=== PATIENT | female | born 1975 | race African-American/Black ===

== ENCOUNTER 2018-02-16 17:35 | Inpatient (IN) | payer SELFPAY ==
[~2018-02-16] VITALS: Ht 160 cm; Wt 124.7 kg
[2018-02-16] MEDS ORDERED: PROT20 PO (17:44)
[2018-02-16] MEDS ORDERED: SODIUM CHLORIDE 0.9% 1,000 ML IV ONE (20:20)
[2018-02-16] MEDS ORDERED: ONDANSETRON HCL 4MG/2ML VIAL IV STA (20:20)
[2018-02-16] MEDS ORDERED: PANTOPRAZOLE SODIUM 40 MG/VIAL IV STA (20:20)
[2018-02-16] MEDS ORDERED: MORPHINE SULFATE 4 MG/ML CPJ (NOT FOR IM USE) IV STA (20:20)
[2018-02-16 21:07] LABS: BASOPHILS % 0.5 % (0.0-2.0); EOSINOPHILS % 0.6 % (0.0-5.0); HEMATOCRIT. 33.4 % (36.0-48.0); HEMOGLOBIN. 11.2 g/dL (12.0-16.0); MEAN CORPUSCULAR VOLUME 77.5 fL (81.0-99.0); MEAN PLATELET VOLUME 7.9 fl (7.4-10.4); MONOCYTES % 6.1 % (2.0-8.0); NEUTROPHILS % 65.8 % (40.0-76.0); PLATELET 396 x1000/uL (130-400); RED BLOOD CELL COUNT 4.31 mill/uL (4.2-5.4); RED CELL DISTRIBUTION WIDTH 20.7 % (11.6-14.6)
[2018-02-16 21:08] LABS: CHLORIDE 104 mEq/L (98-107)
[2018-02-16 21:10] LABS: PROTHROMBIN TIME 10.8 sec (9.4-11.6)
[2018-02-16 21:17] LABS: HCG SCREEN NEGATIVE
[2018-02-16] MEDS ORDERED: ONDANSETRON 4MG ODT PO ONE (22:15)
[2018-02-16] MEDS ORDERED: MORPHINE SULFATE 10 MG/ML CPJ IM ONE (22:15)
[2018-02-17] MEDS ORDERED: PANTOPRAZOLE SODIUM 40 MG/VIAL IV ONE (01:00)
[2018-02-17] MEDS ORDERED: MORPHINE SULFATE 4 MG/ML CPJ (NOT FOR IM USE) IV ONE (01:00)
[2018-02-17] MEDS ORDERED: ONDANSETRON HCL 4MG/2ML VIAL IV ONE (01:00)
[2018-02-17] MEDS ORDERED: MAGNESIUM/ALUMINUM HYDROXIDE/SIMETHICONE 30ML UDC PO PRN (03:08)
[2018-02-17] MEDS ORDERED: ONDANSETRON HCL 4MG/2ML VIAL IV PRN (03:08)
[2018-02-17] MEDS ORDERED: CLONIDINE 0.1MG TABLET PO PRN (03:08)
[2018-02-17 03:27] VITALS: BP 117/65
[2018-02-17 04:00] VITALS: BP 120/68
[2018-02-17] MEDS: DIPHENHYDRAMINE 50MG/ML VIAL IV PRN ×4 (04:38→21:51)
[2018-02-17] MEDS: SODIUM CHLORIDE 0.9% 1,000 ML IV SCH ×3 (04:39→21:51)
[2018-02-17] MEDS: MORPHINE SULFATE 4 MG/ML CPJ (NOT FOR IM USE) IV PRN ×3 (05:47→17:17)
[2018-02-17 07:18] LABS: EOSINOPHILS % 2.2 % (0.0-5.0); HEMATOCRIT. 32.4 % (36.0-48.0); HEMOGLOBIN. 10.5 g/dL (12.0-16.0); LYMPHOCYTES % 31.9 % (20.0-50.0); MEAN CORPUSCULAR HEMOGLOBIN 25.3 pg (28.0-32.0); MEAN CORPUSCULAR VOLUME 78.5 fL (81.0-99.0); MEAN PLATELET VOLUME 8.2 fl (7.4-10.4); MONOCYTES % 7.4 % (2.0-8.0); NEUTROPHILS % 57.5 % (40.0-76.0); PLATELET 329 x1000/uL (130-400); RED BLOOD CELL COUNT 4.13 mill/uL (4.2-5.4); RED CELL DISTRIBUTION WIDTH 20.5 % (11.6-14.6)
[2018-02-17 07:43] VITALS: BP 101/54
[2018-02-17 07:50] LABS: CHLORIDE 105 mEq/L (98-107)
[2018-02-17] MEDS ORDERED: LORA2TAB95 PO (08:45)
[2018-02-17] MEDS: PANTOPRAZOLE SODIUM 40 MG/VIAL IV SCH (08:46)
[2018-02-17 12:00] VITALS: BP 110/59
[2018-02-17] MEDS ORDERED: MIDAZOLAM HCL 5 MG/5 ML VIAL IV PRN (12:53)
[2018-02-17] MEDS ORDERED: MEPERIDINE HCL/PF 100MG/ML CPJ IV PRN (12:54)
[2018-02-17] MEDS ORDERED: DIPHENHYDRAMINE 50MG/ML VIAL IV PRN (12:55)
[2018-02-17] MEDS ORDERED: MIDAZOLAM HCL 5 MG/5 ML VIAL ONE (12:57)
[2018-02-17] MEDS ORDERED: DIPHENHYDRAMINE 50MG/ML VIAL ONE (12:57)
[2018-02-17] MEDS ORDERED: MEPERIDINE HCL/PF 100MG/ML CPJ ONE (12:59)
[2018-02-17 16:00] VITALS: BP 123/58
[2018-02-17] MEDS: ACETAMINOPHEN 325MG TABLET PO PRN ×2 (17:17→21:52)
[2018-02-17 20:00] VITALS: BP 118/60
[2018-02-18] VITALS: BP 109/47
[2018-02-18 00:05] LABS: CLARITY URINE CLEAR (CLEAR); COLOR URINE YELLOW (YELLOW); KETONES URINE NEGATIVE (NEGATIVE); LEUKOCYTE ESTERASE URINE NEGATIVE (NEGATIVE); NITRITE URINE NEGATIVE (NEGATIVE); OCCULT BLOOD URINE 2+ (NEGATIVE); PH URINE 6.5 (4.5-8.0); PROTEIN URINE NEGATIVE (NEGATIVE); SPECIFIC GRAVITY URINE 1.007 (1.005-1.030); UROBILINOGEN URINE 0.2 E.U./dL (0.2-1.0)
[2018-02-18] MEDS: SODIUM CHLORIDE 0.9% 1,000 ML IV SCH ×2 (03:30→12:21)
[2018-02-18] MEDS: DIPHENHYDRAMINE 50MG/ML VIAL IV PRN ×3 (03:37→12:23)
[2018-02-18 04:00] VITALS: BP 106/64
[2018-02-18 07:27] VITALS: BP 98/55
[2018-02-18 07:57] LABS: HEMATOCRIT 28.3 % (36.0-48.0); HEMOGLOBIN 9.2 g/dL (12.0-16.0)
[2018-02-18] MEDS: PANTOPRAZOLE SODIUM 40 MG/VIAL IV SCH (08:21)
[2018-02-18 08:25] LABS: TOTAL IRON BINDING CAPACITY 333 ug/dL (250-450)
[2018-02-18 12:04] VITALS: BP 112/62
[2018-02-18] MEDS: ACETAMINOPHEN 325MG TABLET PO PRN (12:23)
[2018-02-18] MEDS ORDERED: ASCORBIC ACID 500 MG TABLET PO SCH (12:30)
[2018-02-18] MEDS ORDERED: FERROUS SULFATE 325MG TABLET PO SCH (12:40)
[2018-02-18 14:12] VITALS: BP 112/62
== END 2018-02-18 15:21 | disposition home or self-care (01) | DRG 241 ==
LOC: ER 18:17 → ENRESERV 23:11 → EDBEDREQ 23:19 → EDBEDREQTM 23:19 → 8WST 02-17 02:53
PROVIDERS: ADMIT Internal Medicine; ATTEND Internal Medicine
PROC: 0DB68ZX Excision of Stomach, Via Natural or Artificial Opening Endoscopic, Diagnostic (ICD-10-PCS; principal; 2018-02-17 15:00)
DX: K29.01 Acute gastritis with bleeding (principal); N20.0 Calculus of kidney; D25.9 Leiomyoma of uterus, unspecified; K25.4 Chronic or unspecified gastric ulcer with hemorrhage; D50.9 Iron deficiency anemia, unspecified; F41.9 Anxiety disorder, unspecified; Z80.0 Family history of malignant neoplasm of digestive organs; Z82.49 Family history of ischemic heart disease and other diseases of the circulatory system; Z85.038 Personal history of other malignant neoplasm of large intestine; Z90.49 Acquired absence of other specified parts of digestive tract; Z88.0 Allergy status to penicillin; Z88.8 Allergy status to other drugs, medicaments and biological substances
CPT/HCPCS: 36415; 71045; 74176; 80048; 80053; 81003; 82270; 82728; 83540; 83550; 83690; 83880; 84484; 84703; 85014; 85018; 85025; 85610; 86850; 86900; 87086; 88305; 88313; 93005; C1893; C9113; J1200; J2175; J2250; J2270; J2405; J7030; Q0162